=== PATIENT | male | born 1965 | race Caucasian/White ===

== ENCOUNTER 2023-08-11 03:10 | Emergency (ER) | payer MEDICAID ==
[~2023-08-11] VITALS: Ht 170.2 cm; Wt 72.0 kg
[2023-08-11 03:15] VITALS: O2SAT 98
[2023-08-11] MEDS: ONDANSETRON 4MG ODT PO STA (05:37)
[2023-08-11] MEDS: DICYCLOMINE 10 MG/5 ML ORAL SYR PO STA (05:37)
[2023-08-11] MEDS: MAGNESIUM/ALUMINUM HYDROXIDE/SIMETHICONE 30ML UDC PO STA (05:37)
[2023-08-11 05:42] LABS: HEMATOCRIT. 44.6 % (42.0-52.0); HEMOGLOBIN. 15.1 g/dL (14.0-18.0); MEAN CORPUSCULAR HEMOGLOBIN 30.4 pg (28.0-32.0); MEAN CORPUSCULAR HGB CONC 33.9 g/dL (31.0-37.0); MEAN CORPUSCULAR VOLUME 89.8 fL (80.0-94.0); MEAN PLATELET VOLUME 8.2 fl (7.4-10.4); PLATELET 201 x1000/uL (130-400); RED BLOOD CELL COUNT 4.97 mill/uL (4.7-6.1); RED CELL DISTRIBUTION WIDTH 14.1 % (11.6-14.6); WHITE BLOOD COUNT 5.8 x1000/uL (4.5-11.0)
[2023-08-11 05:56] LABS: ALANINE AMINOTRANSFERASE 36 IU/L (10-49); ALBUMIN 4.7 g/dL (3.2-4.8); ASPARTATE AMINOTRANSFERASE 29 IU/L (<34); BILIRUBIN TOTAL 0.7 mg/dL (0.1-1.0); CALCIUM 9.2 mg/dL (8.7-10.4); CARBON DIOXIDE 27 mEq/L (21-32); CHLORIDE 107 mEq/L (98-107); GLUCOSE 100 mg/dL (70-105); POTASSIUM 3.5 mEq/L (3.5-5.1); PROTEIN TOTAL 7.9 g/dL (6.0-8.3); SODIUM 138 mEq/L (136-145); UREA NITROGEN BLOOD 13 mg/dL (9-23)
[2023-08-11 05:57] LABS: TROPONIN I HIGH SENSITIVITY < 4 ng/L (3.0-53)
[2023-08-11 06:48] LABS: DIFFERENTIAL COMMENT 1
[2023-08-11] MEDS: ACETAMINOPHEN 650MG/20.3ML UDC PO ONE (07:24)
[2023-08-11 08:00] VITALS: BP 122/84; PULSE 71; RESP 16; TEMP 98.5
[2023-08-11 08:15] LABS: CLARITY URINE CLEAR (CLEAR); COLOR URINE YELLOW (YELLOW); GLUCOSE URINE NEGATIVE (NEGATIVE); KETONES URINE NEGATIVE (NEGATIVE); LEUKOCYTE ESTERASE URINE NEGATIVE (NEGATIVE); NITRITE URINE NEGATIVE (NEGATIVE); OCCULT BLOOD URINE NEGATIVE (NEGATIVE); PROTEIN URINE TRACE (NEGATIVE); SPECIFIC GRAVITY URINE 1.017 (1.005-1.030); UROBILINOGEN URINE 0.2 E.U./dL (0.2-1.0)
[2023-08-11 08:29] LABS: MUCUS URINE 1+ /lpf (NONE/TRACE)
[2023-08-11 08:30] LABS: WBC URINE 0-2 /hpf (0-2)
[2023-08-11 08:31] LABS: SQUAMOUS EPITHELIAL CELL URINE RARE /lpf (RARE/1+)
[2023-08-11 08:32] LABS: RBC URINE NONE SEEN /hpf (0-2)
[2023-08-11 08:33] LABS: BACTERIA URINE TRACE
[2023-08-11 08:50] LABS: PLATELET ESTIMATE NORMAL
== END 2023-08-11 08:56 | disposition home or self-care (01) ==
LOC: ER 03:10
DX: K52.9 Noninfective gastroenteritis and colitis, unspecified (principal); R07.89 Other chest pain; N43.3 Hydrocele, unspecified
CPT/HCPCS: 99285; 93976; 71045; 80053; 81003; 83880; 83690; 85025; 84484; 36415; 76870; 93005; Q0162